=== PATIENT | male | born 1985 | race Two or more races ===

== ENCOUNTER 2022-07-12 11:49 | Emergency (ER) | payer OTHER ==
[~2022-07-12] VITALS: Ht 182.9 cm; Wt 87.5 kg
[2022-07-12] MEDS ORDERED: IBUP-1955 PO ×2 (13:24→14:29)
[2022-07-12] MEDS ORDERED: HYDR-3976 PO (13:24)
[2022-07-12] MEDS ORDERED: HYDROCODONE/APAP 10/325MG TABLET PO ONE (13:30)
[2022-07-12] MEDS ORDERED: KETOROLAC TROMETHAMINE INJ 30 MG/ML VIAL IM ONE (13:30)
[2022-07-12] MEDS ORDERED: KETOROLAC TROMETHAMINE INJ 30 MG/ML VIAL ONE (13:36)
[2022-07-12] MEDS ORDERED: HYDROCODONE/APAP 5/325MG TABLET ONE (13:36)
[2022-07-12 14:08] VITALS: BP 132/76
--- NOTE | 2022-07-12 14:09 | NUR ---
FIDE LEFT IN STABLE CONDITION.
[2022-07-12] MEDS ORDERED: HYDR-3980 PO (14:29)
== END 2022-07-12 14:09 | disposition home or self-care (01) ==
LOC: ER 12:07
DX: M54.42 Lumbago with sciatica, left side (principal); Z60.2 Problems related to living alone
CPT/HCPCS: 99283; 96372; J1885